=== PATIENT | female | born 1955 | race Caucasian/White ===

== ENCOUNTER 2024-12-16 12:47 | Inpatient (IN) | payer OTHER ==
[~2024-12-16] VITALS: Ht 160 cm; Wt 55.3 kg
[2024-12-16 13:46] VITALS: BP 151/71
[2024-12-16] MEDS ORDERED: ATORVASTATIN CA20 MG PO (13:55)
[2024-12-16] MEDS ORDERED: SYNTHROID75 MCG (13:55)
[2024-12-16] MEDS ORDERED: CALTRATE 600+D1 EAC1 PO (13:56)
[2024-12-16] MEDS ORDERED: ENALAPRIL MALE2.5 MG PO (13:56)
[2024-12-16] MEDS ORDERED: EVISTA60 MG PO (13:56)
[2024-12-16] MEDS ORDERED: PROBIOTIC & AC1 EACH (13:57)
[2024-12-16] MEDS ORDERED: CENTRUM SILVER (13:57)
[2024-12-23] MEDS ORDERED: METRONIDAZOLE/SODIUM CHLORIDE 500 MG/100 ML PIGGYBACK IV ONE (07:12)
[2024-12-23] MEDS ORDERED: CEFTRIAXONE SODIUM 2,000 MG VIAL ONE (07:23)
[2024-12-23] MEDS ORDERED: BUPIVACAINE HCL/Mpf 0.5% 10ML VIAL ONE (08:12)
[2024-12-23] MEDS ORDERED: LIDOCAINE HCL 1%/EPINEPHRINE 20ML VIAL IJ ONE (08:12)
[2024-12-23] MEDS ORDERED: SUGAMMADEX SODIUM 200 MG/2 ML VIAL IV ONE (09:36)
[2024-12-23] MEDS ORDERED: MORPHINE SULFATE 4 MG/ML VIAL IV ONE ×2 (10:45→12:30)
[2024-12-23] MEDS ORDERED: RINGERS SOLUTION,LACTATED 1,000 ML IV SCH (11:00)
[2024-12-23] MEDS ORDERED: MORPHINE SULFATE 4 MG/ML CARTRIDGE IV PRN (11:00)
[2024-12-23] MEDS ORDERED: OxyCODONE HCL 5 MG TABLET (ROXICODONE) PO PRN (11:00)
[2024-12-23] MEDS ORDERED: ONDANSETRON HCL 2 MG/ML VIAL IV PRN (11:00)
[2024-12-23] MEDS ORDERED: ONDANSETRON HCL 2 MG/ML VIAL IV ONE (11:15)
[2024-12-23] MEDS ORDERED: SIMETHICONE 125 MG CAPSULE PO SCH (13:00)
[2024-12-23] MEDS ORDERED: HYOSCYAMINE SULFATE 0.125 MG TAB.SUBL SL SCH (13:00)
[2024-12-23] MEDS ORDERED: ACETAMINOPHEN 500 MG GEL..CAP PO SCH (14:00)
[2024-12-23] MEDS ORDERED: ENALAPRILAT DIHYDRATE 1.25 MG/ML VIAL IV PRN (16:15)
[2024-12-23] MEDS ORDERED: ACETAMINOPHEN 500 MG GEL..CAP PO ONE (16:52)
[2024-12-23 16:56] LABS: BASO % 0.2 % (0.1-1.2); HEMATOCRIT 37.1 % (34.1-44.9); HEMOGLOBIN 12.6 g/dL (11.2-15.7); LYMPH # 0.55 (1.18-3.74); LYMPH % 4.6 % (19.3-53.1); MEAN CORPUSCULAR HEMOGLOBIN 31.3 pg (25.6-32.2); MONO # 0.58 (0.24-0.82); MONO % 4.8 % (4.7-12.5); NEUT # 10.78 (1.56-6.13); NEUT % 90.1 % (34.0-71.1); PLATELET COUNT 222 K/uL (163-369); RED BLOOD COUNT 4.03 M/uL (3.93-5.22); RED CELL DISTRIBUTION WIDTH 12.7 % (11.6-14.4)
[2024-12-23] MEDS ORDERED: ATORVASTATIN CALCIUM 20 MG TABLET PO SCH (17:00)
[2024-12-23] MEDS ORDERED: METOCLOPRAMIDE HCL 5 MG/ML VIAL IV SCH (17:00)
[2024-12-23] MEDS ORDERED: GABAPENTIN 300 MG CAPSULE PO SCH (17:00)
[2024-12-23] MEDS ORDERED: POLYETHYLENE GLYCOL 3350 17 GM BLIST.PACK PO SCH (17:00)
[2024-12-23] MEDS ORDERED: CELECOXIB 200 MG CAPSULE PO SCH (17:00)
[2024-12-23 18:32] VITALS: BP 151/71; O2SAT 96
[2024-12-23 19:34] VITALS: BP 151/71; O2SAT 96
[2024-12-23] MEDS ORDERED: FAMOTIDINE/PF 20 MG/2 ML VIAL IV PUSH SCH (21:00)
[2024-12-24 00:41] VITALS: BP 116/67; O2SAT 95
[2024-12-24] MEDS ORDERED: LEVOTHYROXINE SODIUM 75 MCG TABLET PO SCH (06:00)
[2024-12-24 07:33] LABS: BASO % 0.3 % (0.1-1.2); EOS # 0.03 (0.04-0.54); EOS % 0.5 % (0.7-7.0); HEMATOCRIT 34.9 % (34.1-44.9); HEMOGLOBIN 11.8 g/dL (11.2-15.7); LYMPH # 1.26 (1.18-3.74); LYMPH % 20.2 % (19.3-53.1); MONO # 0.41 (0.24-0.82); MONO % 6.6 % (4.7-12.5); NEUT # 4.49 (1.56-6.13); NEUT % 72.1 % (34.0-71.1); PLATELET COUNT 198 K/uL (163-369); RED BLOOD COUNT 3.81 M/uL (3.93-5.22); RED CELL DISTRIBUTION WIDTH 12.7 % (11.6-14.4)
[2024-12-24 08:00] VITALS: BP 125/70; O2SAT 96
[2024-12-24 08:16] LABS: CALCIUM 8.6 mg/dL (8.5-10.1); CREATININE SERUM 0.92 mg/dL (0.55-1.02); GFR 60.89; MAGNESIUM 1.8 mg/dL (1.8-2.4); POTASSIUM 3.86 mEq/L (3.5-5.1)
[2024-12-24] MEDS ORDERED: ENALAPRIL MALEATE 2.5 MG TABLET PO SCH (09:00)
[2024-12-24] MEDS ORDERED: LACTULOSE 20 G/30 ML BLIST.PACK PO SCH (09:00)
[2024-12-24] MEDS ORDERED: LACTOBACILLUS ACIDOPHILUS 1 CAP CAP PO SCH (09:00)
[2024-12-24 16:50] VITALS: BP 152/74; O2SAT 97
[2024-12-24] MEDS ORDERED: ENOXAPARIN SODIUM 40 MG/0.4 ML SYRINGE SUBCUTANEO SCH (17:00)
[2024-12-25 01:03] VITALS: BP 101/54; O2SAT 100
[2024-12-25 08:00] VITALS: BP 137/79; O2SAT 97
[2024-12-25] MEDS ORDERED: ENOXAPARIN SODIUM 40 MG/0.4 ML SYRINGE SUBCUTANEO SCH (09:00)
== END 2024-12-25 14:28 | disposition home or self-care (01) | DRG 330 ==
LOC: O/R 12-23 05:15 → SURH 12-23 12:02
PROVIDERS: ADMIT Colon & Rectal Surgery; ATTEND Colon & Rectal Surgery
PROC: 0DBP4ZZ Excision of Rectum, Percutaneous Endoscopic Approach (ICD-10-PCS; 2024-12-23)
PROC: 8E0W4CZ Robotic Assisted Procedure of Trunk Region, Percutaneous Endoscopic Approach (ICD-10-PCS; 2024-12-23)
PROC: 0DJD8ZZ Inspection of Lower Intestinal Tract, Via Natural or Artificial Opening Endoscopic (ICD-10-PCS; 2024-12-23)
PROC: 0DTN4ZZ Resection of Sigmoid Colon, Percutaneous Endoscopic Approach (ICD-10-PCS; principal; 2024-12-23 15:30)
DX: K57.32 Diverticulitis of large intestine without perforation or abscess without bleeding (principal); K92.1 Melena
CPT/HCPCS: 44207; 44213; S2900